=== PATIENT | female | born 1980 | race Caucasian/White ===

== ENCOUNTER 2022-12-19 10:03 | Outpatient (CLI) | payer OTHER, SELFPAY ==
--- NOTE | ~2022-12-19 | XR_ITS ---
XR hand BI arthritis min 3V DATE: 12/19/2022 10:38 INDICATION: Numbness and pain in hand TECHNIQUE: 3 views COMPARISON: None FINDINGS: There is very mild osteoarthritis at the first carpometacarpal joint. No fracture or disloc ation, periosteal reaction or bone destruction, radiopaque interarticular loose body or, calcinosis i s noted. IMPRESSION: Very mild osteoarthritis at first carpometacarpal joint Reviewed, dictated and finalized at location B.
--- NOTE | ~2022-12-19 | XR_ITS ---
XR cervical spine 4-5V DATE: 12/19/2022 10:38 INDICATION: Numbness, pain in hand TECHNIQUE: AP, open-mouth, lateral, swimmer views COMPARISON: None FINDINGS: There is straightening of the cervical spine which may be due to muscle spasm. No fracture or dislocation or locked facet or prevertebral soft tissue swelling is detected. Cervical interspaces appear relatively well preserved. Mild anteroinferior C5 vertebral body spurring. There is uncovertebral joint spurring on the left at C6-C7, encroaching upon the anterior aspect of t he left C7 neural foramen. IMPRESSION: Left uncovertebral joint spurring at C6-7, encroaching upon the anterior aspect of left C 7 neural foramen Reviewed, dictated and finalized at location B. IMPRESSION: Left uncovertebral joint spurring at C6-7, encroaching upon the ant erior aspect of left C7 neural foramen
[2022-12-19 10:38] LABS: Hematocrit 42.5 % (37.0-47.0); Hemoglobin 14.3 g/dL (12.0-15.0); Mean Corpuscular HGB Conc 33.6 g/dl (32-36); Mean Corpuscular Hemoglobin 29.4 pg (26-34); Mean Corpuscular Volume 87.3 fl (80-100); Platelet Count Result 386 k/mm3 (150-375); Red Blood Count 4.87 M/mm3 (4.2-5.4); Red Cell Distribution Width 11.9 % (11.5-14.5); White Blood Count 12.1 K/mm3 (4.5-10.0)
[2022-12-19 10:51] LABS: Alanine Aminotransferase 33 U/L (6-35); Albumin Level 4.2 g/dL (3.5-5.1); Alkaline Phosphatase 99 U/L (38-126); Anion Gap 9 mmol/L (8-16); Aspartate Amino Transferase 20 U/L (14-36); Bilirubin,Total 0.4 mg/dL (0.2-1.3); Blood Urea Nitrogen 12 mg/dL (7-17); CRP < 0.5 mg/dL (<1.0); Calcium 8.8 mg/dL (8.4-10.2); Carbon Dioxide 30 mmol/L (22-30); Chloride 100 mmol/L (98-107); Estimated Glomerular Filt Rate > 60; Glucose 96 mg/dL (65-110); Potassium 3.6 mmol/L (3.4-5.0); Sodium 139 mmol/L (137-145); Uric Acid 3.8 mg/dL (2.5-7.5)
[2022-12-19 11:08] LABS: Vitamin D 25 Hydroxy 35.7 ng/mL
[2022-12-23 11:31] LABS: Angiotensin Converting Enzyme 25 U/L (9-67)
[2022-12-24 22:45] LABS: Anti Cyclic Citrullinated Pept <16 Units (<20)
[2022-12-26 05:55] LABS: Anti Nuclear Antibody Pattern Nuclear, Speckled
== END 2022-12-19 10:04 | disposition home or self-care (01) ==
PROVIDERS: PCP Internal Medicine; Visit Provider Internal Medicine
DX: M19.90 Unspecified osteoarthritis, unspecified site (principal); R20.2 Paresthesia of skin; Z79.899 Other long term (current) drug therapy; Z71.89 Other specified counseling; M19.042 Primary osteoarthritis, left hand; M19.041 Primary osteoarthritis, right hand; M77.9 Enthesopathy, unspecified
CPT/HCPCS: 36415; 72050; 73130; 80053; 82164; 82306; 84550; 85027; 86038; 86039; 86140; 86200

== ENCOUNTER 2023-01-13 13:41 | Outpatient (CLI) | payer OTHER, SELFPAY ==
--- NOTE | ~2023-01-13 | MR_ITS ---
EXAMINATION: MR cervical spine wo/w con DATE: 01/13/2023 14:29 INDICATION: Unspecified osteoarthritis, unspecified site. Numbness and pain and tingling in the arms. TECHNIQUE: Magnetic resonance imaging (MRI) of the cervical spine was performed without and with 17 m L MultiHance intravenous contrast. COMPARISON: Cervical spine radiographs 12/19/2022 FINDINGS: There is 3 degrees levocurvature of cervicothoracic spine. Vertebral body heights are yanet l. There is mildly decreased disc height at C5-C6. The spinal cord signal intensity is normal. The fo llowing disc levels are specifically discussed: C2-C3: The disc does not extend beyond the endplate margin. There is no uncovertebral joint osteoarth ritis. There is severe right and mild left facet joint osteoarthritis. There is mild right neural for aminal stenosis. There is no central canal stenosis. C3-C4: The disc does not extend beyond the endplate margin. There is no uncovertebral joint osteoarth ritis. There is mild bilateral facet joint osteoarthritis. There is no neural foraminal stenosis. The re is no central canal stenosis. C4-C5: There is a central extrusion. There is no uncovertebral joint osteoarthritis. There is moderat e right and mild left facet joint osteoarthritis. There is no neural foraminal stenosis. There is mil d central canal stenosis. C5-C6: The disc is bulging with superimposed central extrusion. There is mild bilateral uncovertebral joint osteoarthritis. There is severe bilateral facet joint osteoarthritis. There is mild bilateral neural foraminal stenosis. There is mild central canal stenosis. C6-C7: The disc does not extend beyond the endplate margin. There is mild right and severe left uncov ertebral joint osteoarthritis. There is mild bilateral facet joint osteoarthritis. There is mild left neural foraminal stenosis. There is no central canal stenosis. C7-T1: The disc does not extend beyond the endplate margin. There is no uncovertebral joint osteoarth ritis. There is mild right and moderate left facet joint osteoarthritis. There is mild left neural fo raminal stenosis. There is no central canal stenosis. IMPRESSION: 1. Mild cervical spondylosis. Reviewed, dictated and finalized at location A.
== END 2023-01-13 13:42 ==
PROVIDERS: Visit Provider Internal Medicine
DX: M19.90 Unspecified osteoarthritis, unspecified site (principal); M43.02 Spondylolysis, cervical region
CPT/HCPCS: 72156; A9577